=== PATIENT | male | born 1980 | race Caucasian/White ===

== ENCOUNTER 2017-07-05 01:09 | Emergency (ER) | payer BC ==
[2017-07-05 01:35] LABS: BASOPHILS 0.4 % (0-2); EOSINOPHILS 1.3 % (0-7); HEMATOCRIT 41.6 % (42.0-54.0); HEMOGLOBIN 14.4 g/dL (13.5-17.5); IMMATURE GRANULOCYTES 0.6 % (0-5); LYMPHOCYTES 39.7 % (15-50); MCH 29.4 pg (26.0-34.0); MCHC 34.6 g/dL (31.0-37.0); MCV 84.9 fL (80.0-100.0); MEAN PLATELET VOLUME 9.3 fL (7.4-10.4); MONOCYTES 7.1 % (2-11); NEUTROPHILS 50.9 % (40-80); PLATELET COUNT 191 10x3/uL (130-400); RDW 13.3 % (11.5-14.5); WBC 8.9 10x3/uL (4.8-10.8)
[2017-07-05 01:55] LABS: ALBUMIN 3.6 g/dL (3.4-5.0); ALKALINE PHOSPHATASE 72 U/L (46-116); ALT (SGPT) 43 U/L (10-68); CALC OSMOLALITY 280 mosm/kg (275-300); CALCIUM 8.7 mg/dL (8.5-10.1); CARBON DIOXIDE 28.1 mmol/L (21.0-32.0); CHLORIDE - SERUM 103 mmol/L (98-107); CREATININE - SERUM 1.2 mg/dL (0.6-1.3); GLUCOSE 103 mg/dL (74-106); POTASSIUM - SERUM 3.6 mmol/L (3.5-5.1); PROTEIN - SERUM 7.6 g/dL (6.4-8.2); SODIUM 140 mmol/L (136-145); UREA NITROGEN 19 mg/dL (7-18); eGFR NON AFRICAN AMERICAN 73 mL/min (90-120)
[2017-07-05 02:05] LABS: CHOL - HDL RATIO 6.8 ratio (2.3-4.9); CHOLESTEROL, TOTAL 205 mg/dL (0-200); CKMB 1.2 U/L (0.0-3.6); CREATINE KINASE 272 UL (21-232); HDL CHOLESTEROL 30 mg/dL (32-96); LDL CHOLESTEROL 122 mg/dL (0-100); LDL-HDL RATIO 4.1 ratio (1.5-3.5); TRIGLYCERIDE 269 mg/dL (30-200)
[2017-07-05 02:06] LABS: TROPONIN-I < 0.017 ng/mL (0.000-0.060)
== END 2017-07-05 02:29 | disposition home or self-care (01) ==
LOC: D.ER 01:09 → EDBD 01:09 → D.ER 02:29
PROVIDERS: Emergency Medicine
DX: I10 Essential (primary) hypertension (principal); I24.8 Other forms of acute ischemic heart disease; E66.01 Morbid (severe) obesity due to excess calories; E87.5 Hyperkalemia; F17.200 Nicotine dependence, unspecified, uncomplicated

== ENCOUNTER 2019-02-17 06:45 | Day surgery (SDC) | payer BC ==
[2019-02-16 11:17] LABS: BASOPHILS 0.4 % (0-2); EOSINOPHILS 1.8 % (0-7); HEMATOCRIT 42.2 % (42.0-54.0); HEMOGLOBIN 14.5 g/dL (13.5-17.5); IMMATURE GRANULOCYTES 1.1 % (0-5); LYMPHOCYTES 25.9 % (15-50); MCH 30.2 pg (26.0-34.0); MCHC 34.4 g/dL (31.0-37.0); MCV 87.9 fL (80.0-100.0); MEAN PLATELET VOLUME 9.4 fL (7.4-10.4); MONOCYTES 7.3 % (2-11); NEUTROPHILS 63.5 % (40-80); PLATELET COUNT 164 10x3/uL (130-400)
[2019-02-16 11:36] LABS: CALC OSMOLALITY 285 mosm/kg (275-300); CALCIUM 8.6 mg/dL (8.5-10.1); CARBON DIOXIDE 29.7 mmol/L (21.0-32.0); CHLORIDE - SERUM 107 mmol/L (98-107); GLUCOSE 108 mg/dL (74-106); POTASSIUM - SERUM 3.9 mmol/L (3.5-5.1); SODIUM 143 mmol/L (136-145); UREA NITROGEN 13 mg/dL (7-18); eGFR NON AFRICAN AMERICAN 89 mL/min (90-120)
[~2019-02-17] VITALS: Ht 210.8 cm; Wt 147.4 kg
[~2019-02-17 06:45] MED LIST: IBUPROFEN800 MG PO; LOSARTAN/HCTZ PO; OMEPRAZOLE20 M1 PO; TOPROL XL50 MG PO
[2019-02-17 08:06] VITALS: BP 133/79; Ht 210.8 cm; Wt 147.4 kg
--- NOTE | 2019-02-17 17:39 | NUR ---
1515 C/O TOO TIGHT OF DRESSING. FINGERS PINK AND WARM,SOME NUMBNESS TO FINGERS. DR DUNCAN CALLED AND STATED TO REMOVE THE BOB AND RE WRAP. PT STATED IT FELT BETTER. 1600 MEDICATED FOR MILD PAIN. 1615 VOIDED A LARGE AMT. IV REMOVED AND PRESSURE HELD AND DRESSING APPLIED. INSTRUCTIONS GIVEN. 1630 PT D/C HOME WITH SLING PER REQUEST.
== END 2019-02-17 16:30 | disposition home or self-care (01) ==
LOC: D.OPS 06:45 → D.PAN 09:00 → D.OPS 09:00
PROVIDERS: ATTEND Orthopaedic Surgery
DX: S62.605A Fracture of unspecified phalanx of left ring finger, initial encounter for closed fracture (principal); S62.603A Fracture of unspecified phalanx of left middle finger, initial encounter for closed fracture